=== PATIENT | female | born 1975 | race Caucasian/White ===

== ENCOUNTER 2017-11-03 14:03 | Emergency (ER) | payer OTHER ==
[~2017-11-03] VITALS: Ht 160 cm; Wt 49.9 kg
[2017-11-03] MEDS ORDERED: PREDNISONE5 M1 (14:30)
== END 2017-11-03 19:55 | disposition home or self-care (01) ==
LOC: ER 14:03
DX: K59.09 Other constipation (principal); R10.11 Right upper quadrant pain